=== PATIENT | female | born 1955 | race Caucasian/White ===

== ENCOUNTER 2020-11-22 10:00 | Emergency (ER) | payer MEDICARE ==
--- NOTE | 2020-11-22 10:19 | Event Note ---
ED Screening Note ED Screening Note: was being prepped for colonoscopy today did not take bp meds for 2 days did GI prep last night went for scope and bp high pt co [facility] and they sent her here see note sent from GI MD no focal neuro def This initial assessment/diagnostic orders/clinical plan/treatment(s) is/are subject to change based on patients health status, clinical progression and re- assessment by fellow clinical providers in the ED. Further treatment and workup at subsequent clinical providers discretion. Patient/guardian urged not to elope from the ED as their condition may be serious if not clinically assessed and managed. Initial orders include: labs/ua/ekg/xray
--- NOTE | 2020-11-22 11:08 | XRay Report ---
CHEST 2 VIEWS INDICATION / CLINICAL INFORMATION: Hypertension. COMPARISON: None available. FINDINGS: SUPPORT DEVICES: None. HEART / MEDIASTINUM: No significant abnormality. LUNGS / PLEURA: Clear lungs. No significant pleural effusion. No pneumothorax. ADDITIONAL FINDINGS: No significant additional findings. IMPRESSION: 1. No acute abnormality of the chest. Signer Name: Bob Rodríguez MD Signed: 11/22/2020 11:03 AM Workstation Name: [id number]
[2020-11-22 11:13] LABS: Basophils % (Auto) 0.3 % (0.0-1.8); Eosinophils % (Auto) 0.5 % (0.0-4.3); Hematocrit 30.7 % (30.3-42.9); Lymphocytes # (Auto) 0.9 K/mm3 (1.2-5.4); Lymphocytes % (Auto) 10.5 % (13.4-35.0); Mean Corpuscular HGB Conc 33 % (30-34); Monocytes # (Auto) 0.5 K/mm3 (0.0-0.8); Monocytes % (Auto) 5.9 % (0.0-7.3); Platelet Count 238 K/mm3 (140-440); Red Blood Count 4.99 M/mm3 (3.65-5.03); Red Cell Distribution Width 15.8 % (13.2-15.2)
[2020-11-22 11:18] LABS: Mean Corpuscular Volume 62 fl (79-97)
[2020-11-22 11:18] LABS: Bilirubin,Urine NEG (Negative); Blood,Urine SM (Negative); Color,Urine Yellow (Yellow); Mucus,Urine FEW /HPF; Protein,Urine <15 mg/dL mg/dL (Negative); Urobilinogen,Urine < 2.0 mg/dL (<2.0)
[2020-11-22] MEDS ORDERED: ONDANSETRON 4 MG ODT TAB PO ONE (11:29)
[2020-11-22] MEDS ORDERED: ACETAMINOPHEN 325 MG TAB PO ONE (11:29)
[2020-11-22] MEDS ORDERED: cloNIDine 0.2 MG TAB PO ONE (11:29)
[2020-11-22 11:34] LABS: Alanine Aminotransferase 23 units/L (7-56); Albumin 4.1 g/dL (3.9-5); Blood Urea Nitrogen 10 mg/dL (7-17); Calcium 8.9 mg/dL (8.4-10.2); Hemolysis Index 0
--- NOTE | 2020-11-22 11:34 | Emergency Department Report ---
ED Headache HPI - General Chief Complaint: High BP Stated Complaint: HBP Time Seen by Provider: 11/22/20 10:19 Source: patient Exam Limitations: no limitations - History of Present Illness Initial Comments: 65-year-old female with a past medical history hypertension presents to hospital complaining of elevated blood pressure and headache x1 day. Patient typically takes atenolol and triamterene once a day in the evening with last dose 2 days ago. Patient did not take her dose last night in preparation for colonoscopy this a.m. Upon going for screening colonoscopy where she was noted that patient had elevated BP and therefore she was sent to the ER for evaluation. Patient complains of a 7/10 constant frontal headache with some mild nausea and fatigue. She denies blurry vision, focal weakness, focal numbness, or neck pain. Patient denies chest pain or shortness of breath patient does not know her current dose of medications Allergies/Adverse Reactions: Allergies No Known Allergies Allergy (Unverified 11/22/20 11:27) ED Review of Systems ROS: Stated complaint: HBP Other details as noted in HPI Comment: All other systems reviewed and negative ED Past Medical Hx - Past Medical History Previous Medical History?: Yes Hx Hypertension: Yes Additional medical history: anemia - Surgical History Past Surgical History?: Yes Additional Surgical History: x 2 - Social History Smoking Status: Never Smoker ED Physical Exam - General Limitations: No Limitations - Other Other exam information: General: No acute distress Head: Atraumatic Eyes: normal appearance, pupils equal and reactive to light, extraocular movements ENT: Moist mucous membranes Neck: Normal appearance, no midline tenderness, no nuchal rigidity Chest: Clear to auscultation bilaterally CV: Regular rate and rhythm Abdomen: Soft, normal bowel sounds, nontender, nondistended, no rebound or guarding Back: Normal inspection Extremity: Normal inspection, full range of motion Neuro: Alert O x 3, no facial asymmetry, speech clear, no gross motor sensory deficit, [id number] function at Psych: Appropriate behavior Skin: No rash ED Course Vital Signs 11/22/20 11/22/20 11/22/20 10:17 11:08 11:09 Temperature 98.1 F 98.0 F Pulse Rate 70 69 Respiratory 15 11 L 11 L Rate Blood Pressure 201/85 Blood Pressure 214/92 [Left] O2 Sat by Pulse 99 99 Oximetry 11/22/20 11/22/20 11:43 12:36 Temperature Pulse Rate 70 Respiratory 16 Rate Blood Pressure 211/96 Blood Pressure 175/62 [Left] O2 Sat by Pulse 99 Oximetry - Reevaluation(s) Reevaluation #1: 11/22/20 12:51 bp 154/79, hr 68, headache resolved, asymptomatic ED Medical Decision Making - Lab Data Result diagrams: 11/22/20 10:37 11/22/20 10:37 Lab Results 11/22/20 11/22/20 11/22/20 Range/Units 10:37 10:37 Unknown WBC 8.2 (4.5-11.0) K/mm3 RBC 4.99 (3.65-5.03) M/mm3 Hgb 10.0 L (10.1-14.3) gm/dl Hct 30.7 (30.3-42.9) % MCV 62 L (79-97) fl MCH 20 L (28-32) pg MCHC 33 (30-34) % RDW 15.8 H (13.2-15.2) % Plt Count 238 (140-440) K/mm3 Lymph % (Auto) 10.5 L (13.4-35.0) % [place] % (Auto) 5.9 (0.0-7.3) % Eos % (Auto) 0.5 (0.0-4.3) % Baso % (Auto) 0.3 (0.0-1.8) % Lymph # (Auto) 0.9 L (1.2-5.4) K/mm3 [place] # (Auto) 0.5 (0.0-0.8) K/mm3 Eos # (Auto) 0.0 (0.0-0.4) K/mm3 Baso # (Auto) 0.0 (0.0-0.1) K/mm3 Seg Neutrophils % 82.8 H (40.0-70.0) % Seg Neutrophils # 6.8 (1.8-7.7) K/mm3 Sodium 137 (137-145) mmol/L Potassium 3.6 (3.6-5.0) mmol/L Chloride 100.2 (98-107) mmol/L Carbon Dioxide 26 (22-30) mmol/L Anion Gap 14 mmol/L BUN 10 (7-17) mg/dL Creatinine 0.6 (0.6-1.2) mg/dL Estimated GFR > 60 ml/min BUN/Creatinine Ratio 17 % Glucose 131 H (65-100) mg/dL Calcium 8.9 (8.4-10.2) mg/dL Total Bilirubin 1.20 (0.1-1.2) mg/dL AST 27 (5-40) units/L ALT 23 (7-56) units/L Alkaline Phosphatase 70 (35-129) units/L Troponin T < 0.010 (0.00-0.029) ng/mL Total Protein 7.0 (6.3-8.2) g/dL Albumin 4.1 (3.9-5) g/dL Albumin/Globulin Ratio 1.4 % Urine Color Yellow (Yellow) Urine Turbidity Clear (Clear) Urine pH 7.0 (5.0-7.0) Ur Specific [place] 1.012 (1.003-1.030) Urine Protein <15 mg/dl (Negative) mg/dL Urine Glucose (UA) Neg (Negative) mg/dL Urine Ketones Tr (Negative) mg/dL Urine Blood Sm (Negative) Urine Nitrite Neg (Negative) Urine Bilirubin Neg (Negative) Urine Urobilinogen < 2.0 (<2.0) mg/dL Ur Leukocyte Esterase Neg (Negative) Urine WBC (Auto) 1.0 (0.0-6.0) /HPF Urine RBC (Auto) 5.0 (0.0-6.0) /HPF U Epithel Cells (Auto) < 1.0 (0-13.0) /HPF Urine Mucus Few /HPF - EKG Data -: EKG Interpreted by [facility] EKG shows normal: sinus rhythm, ST-T waves (No STEMI) Rate: normal - EKG Data When compared to previous EKG there are: previous EKG unavailable - Radiology Data Radiology results: report reviewed CHEST 2 VIEWS INDICATION / CLINICAL INFORMATION: Hypertension. COMPARISON: None available. FINDINGS: SUPPORT DEVICES: None. HEART / MEDIASTINUM: No significant abnormality. LUNGS / PLEURA: Clear lungs. No significant pleural effusion. No pneumothorax. ADDITIONAL FINDINGS: No significant additional findings. IMPRESSION: 1. No acute abnormality of the chest. CT head/brain wo con INDICATION / CLINICAL INFORMATION: 65 years Female; htn, headache. TECHNIQUE: Routine CT head without contrast. All CT scans at this location are performed using CT dose reduction for ALARA by means of automated exposure control. COMPARISON: None. FINDINGS: BRAIN / INTRACRANIAL CONTENTS: There appear to be mild cerebral white matter ch anges with subtle foci of decreased attenuation which includes the subcortical regions. The findings are nonspecific though most consistent with mild microvascular angiopathy. The ventricular system is within normal limits in size and configuration. There is no clear CT evidence of acute intracranial hemorrhage or significant mass effect. ORBITS: No significant abnormality of visualized orbits. SINUSES / MASTOIDS: No significant abnormality in the visualized paranasal sinuses or mastoid air cells. CRANIOCERVICAL JUNCTION: No significant abnormality. ADDITIONAL FINDINGS: None. IMPRESSION: 1. There is mild microvascular angiopathy without CT evidence of acute int racranial hemorrhage. - Medical Decision Making Patient presents to the hospital elevated blood pressure and headache secondary to missing her evening dose of medications. Medications were held due to colonoscopy this a.m. Patient did receive 1 dose of clonidine, Tylenol, and Zofran with resolution in symptoms and improvement in blood pressure. CT head, labs, EKG unremarkable. Patient asymptomatic at time of discharge. Outpatient follow-up with her doctor encouraged and patient informed to resume her current medication regimen Critical Care Time: No Critical care attestation.: If time is entered above; I have spent that time in minutes in the direct care of this critically ill patient, excluding procedure time. ED Disposition Clinical Impression: Uncontrolled hypertension, Headache Disposition: DC-01 TO HOME OR SELFCARE Is pt being admited?: No Does the pt Need Aspirin: No Condition: Stable Instructions: Hypertension (ED), Managing Your Hypertension Additional Instructions: Continue your continue current e medication as prescribed. Follow-up with your doctor or doctor/clinic provided. Return if symptoms worsen as indicated by your discharge instructions. Referrals: [facility] [Other] - 3-5 Days Time of Disposition: 12:57
[2020-11-22 11:36] LABS: BUN/Creatinine Ratio 17
--- NOTE | 2020-11-22 12:34 | Cat Scan Report ---
CT head/brain wo con INDICATION / CLINICAL INFORMATION: 65 years Female; htn, headache. TECHNIQUE: Routine CT head without contrast. All CT scans at this location are performed using CT dos e reduction for ALARA by means of automated exposure control. COMPARISON: None. FINDINGS: BRAIN / INTRACRANIAL CONTENTS: There appear to be mild cerebral white matter changes with subtle foci of decreased attenuation which includes the subcortical regions. The findings are nonspecific though most consistent with mild microvascular angiopathy. The ventricular system is within normal limits i n size and configuration. There is no clear CT evidence of acute intracranial hemorrhage or significa nt mass effect. ORBITS: No significant abnormality of visualized orbits. SINUSES / MASTOIDS: No significant abnormality in the visualized paranasal sinuses or mastoid air candace ls. CRANIOCERVICAL JUNCTION: No significant abnormality. ADDITIONAL FINDINGS: None. IMPRESSION: 1. There is mild microvascular angiopathy without CT evidence of acute intracranial hemorrhage. Signer Name: Anthony Rizo MD Signed: 11/22/2020 12:30 PM Workstation Name: [id number]
[2020-11-22 13:24] VITALS: BP 141/57
== END 2020-11-22 13:25 | disposition home or self-care (01) ==
LOC: ED 10:00
DX: R51.9 Headache, unspecified (principal); I10 Essential (primary) hypertension; Z98.890 Other specified postprocedural states
CPT/HCPCS: 36415; 70450; 71046; 80053; 81001; 84484; 85025; Q0162